=== PATIENT | female | born 1970 | race Caucasian/White ===

== ENCOUNTER 2019-12-27 15:45 | Emergency (ER) | payer OTHER ==
--- NOTE | 2019-12-27 16:27 | TELE ---
HPI Do you have fever,cough or shortness of breath?: Yes - General Reason For Visit: COVID Time Seen by Provider: 12/27/19 16:24 History Source: Patient Exam Limitations: Clinical Condition - History of Present Illness Timing/Duration: unsure Associated Symptoms: reports: denies symptoms 12/27/19 16:24 Patient with no significant past medical history present to virtual urgent care for COVID testing due to having nasal congestion and runny nose few days ago which has improved now. Denies fever, chills, cough, shortness of breath. Denies any sick contacts or recent travel. Denies any other symptoms Review of Systems - Review of Systems Able to Perform ROS?: Yes Limited [place] proficient: No Constitutional: No: Chills, Fever, Malaise HEENTM: Yes: Symptoms Reported, See HPI. No: Eye Pain, Blurred Vision, Tearing, Recent change in vision, Double Vision, Cataracts, Ear Pain, Ocular Prothesis, Ear Discharge, Nose Pain, Nose Congestion (improved), Tinnitus, Nose Bleeding, Hearing Loss, Throat Pain, Throat Swelling, Mouth Pain, Dental Problems, Difficulty Swallowing, Mouth Swelling, Other Respiratory: No: Symptoms reported, See HPI, Cough, Orthopnea, Shortness of Breath, SOB with Exertion, SOB at Rest, Stridor, Wheezing, Productive cough, Hemoptysis, Other Cardiac (ROS): No: Symptoms Reported, See HPI, Chest Pain, Edema, Irregular Heart Rate, Lightheadedness, Palpitations, Syncope, Chest Tightness, Other ABD/GI: No: Symptoms Reported, Nausea, Vomiting Musculoskeletal: No: Symptoms Reported Integumentary: No: Symptoms Reported Neurological: No: Symptoms reported All Other Systems: Reviewed and Negative *Physical Exam - Physical Exam General Appearance: Yes: Nourished, Appropriately Dressed. No: Apparent Distress HEENT: positive: Normal ENT Inspection Respiratory/Chest: negative: Respiratory Distress, Accessory Muscle Use Musculoskeletal: positive: Normal Inspection Extremity: positive: Normal Capillary Refill, Normal Inspection, Normal Range of Motion Integumentary: positive: Normal Color Neurologic: positive: Fully Oriented, Alert, Normal Mood/Affect, Normal Response, Motor Strength 5 - Medical Decision Making 12/27/19 16:25 Patient with no significant past medical history present to virtual urgent care for COVID testing due to having nasal congestion and runny nose few days ago which has improved now. Denies fever, chills, cough, shortness of breath. Denies any sick contacts or recent travel. Denies any other symptoms Patient is symptomatic at this time and afebrile. Discussed self quarantine instructions. Cover test ordered as per patient's request. Patient to go to [employer] drive-through testing center today for COVID testing. Patient stable for discharge Discharge Diagnosis at time of Disposition: Encounter by telehealth for suspected COVID-19 - Referrals Follow-up Referral(s): Matilde Gallo [Primary Care Provider] - - Patient Instructions Discharge Instructions: [facility] Instructions, [facility] COVID-19 Isolation Protocol - Discharge Disposition: HOME Condition at time of Disposition: Stable
== END 2019-12-27 16:27 | disposition home or self-care (01) ==
LOC: JVIRT 15:45
DX: Z03.818 Encounter for observation for suspected exposure to other biological agents ruled out (principal)
CPT/HCPCS: C9803; Q3014-GT; U0003

== ENCOUNTER 2020-02-09 11:03 | Emergency (ER) | payer OTHER | END 2020-02-09 11:33 | disposition home or self-care (01) | LOC: JVIRT 11:03 | DX: Z11.59 Encounter for screening for other viral diseases (principal) | CPT/HCPCS: C9803; Q3014-GT; U0003 ==